=== PATIENT | female | born 1980 | race African-American/Black ===

== ENCOUNTER 2019-03-11 02:54 | Emergency (ER) | payer OTHER ==
[~2019-03-11] VITALS: Ht 172.7 cm; Wt 96.2 kg
[2019-03-11 03:16] VITALS: BP 155/98
[2019-03-11] MEDS ORDERED: methylPREDNISolone SOD SUCC 125 MG/2 ML VL IM ONE (05:30)
== END 2019-03-11 05:55 | disposition home or self-care (01) ==
LOC: ER 02:55
DX: T78.40XA Allergy, unspecified, initial encounter (principal); L50.0 Allergic urticaria; L29.9 Pruritus, unspecified; X58.XXXA Exposure to other specified factors, initial encounter
CPT/HCPCS: 96372; 99283; J2930